=== PATIENT | male | born 1935 | race Two or more races ===

== ENCOUNTER 2018-09-18 10:17 | Outpatient (CLI) | payer OTHER | END 2018-09-18 10:23 | disposition home or self-care (01) | LOC: SONOGRAMA 10:17 | DX: M79.604 Pain in right leg (principal) ==

== ENCOUNTER 2018-10-07 08:43 | Outpatient (CLI) | payer OTHER | END 2018-10-07 08:55 | disposition home or self-care (01) | LOC: TOM 08:43 | DX: R31.0 Gross hematuria (principal) | CPT/HCPCS: 74178; Q9965 ==

== ENCOUNTER 2019-01-31 08:46 | Outpatient (CLI) | payer OTHER | END 2019-01-31 08:56 | disposition home or self-care (01) | LOC: SONOGRAMA 08:46 | DX: M79.604 Pain in right leg (principal); M06.261 Rheumatoid bursitis, right knee ==

== ENCOUNTER 2019-03-10 11:37 | Outpatient (CLI) | payer OTHER | END 2019-03-10 15:05 | disposition home or self-care (01) | LOC: LAB 11:37 | DX: N28.1 Cyst of kidney, acquired (principal); Z51.81 Encounter for therapeutic drug level monitoring ==

== ENCOUNTER 2019-03-17 08:20 | Outpatient (CLI) | payer OTHER | END 2019-03-17 08:44 | disposition home or self-care (01) | LOC: TOM 08:20 | DX: N28.1 Cyst of kidney, acquired (principal) | CPT/HCPCS: 74178; Q9965 ==

== ENCOUNTER 2019-08-16 08:41 | Outpatient (CLI) | payer OTHER | END 2019-08-16 09:00 | disposition home or self-care (01) | LOC: SONOGRAMA 08:41 → MAMO-SONO 09:15 | DX: E11.9 Type 2 diabetes mellitus without complications (principal); R63.4 Abnormal weight loss ==

== ENCOUNTER 2019-12-09 14:03 | Emergency (ER) | payer OTHER ==
[~2019-12-09] VITALS: Ht 170.2 cm; Wt 79.4 kg
[2019-12-09] MEDS ORDERED: METFORMIN HCL500 M3 (14:26)
[2019-12-09] MEDS ORDERED: LISINOPRIL10 MG (14:26)
[2019-12-09] MEDS ORDERED: [UNRECOGNIZED DRUG - OTHER] (14:28)
== END 2019-12-09 20:10 | disposition home or self-care (01) ==
LOC: ER 14:03
DX: S32.491A Other specified fracture of right acetabulum, initial encounter for closed fracture (principal); W18.39XA Other fall on same level, initial encounter; Y93.89 Activity, other specified; Y92.538 Other ambulatory health services establishments as the place of occurrence of the external cause; Y99.8 Other external cause status

== ENCOUNTER 2021-05-11 10:14 | Emergency (ER) | payer OTHER ==
[~2021-05-11] VITALS: Ht 170.2 cm; Wt 76.2 kg
[~2021-05-11 10:14] MED LIST: LISINOPRIL10 MG; METFORMIN HCL500 M3; [UNRECOGNIZED DRUG - OTHER]
[2021-05-11] MEDS ORDERED: CIPRO500 MG PO (16:38)
[2021-05-12] MEDS ORDERED: LATANOPROST2.5 ML OP (13:15)
== END 2021-05-11 17:38 | disposition home or self-care (01) ==
LOC: ER 10:14
DX: N40.1 Benign prostatic hyperplasia with lower urinary tract symptoms (principal); N39.0 Urinary tract infection, site not specified; R33.8 Other retention of urine; K59.09 Other constipation

== ENCOUNTER 2021-05-12 12:26 | Emergency (ER) | payer OTHER ==
[~2021-05-12] VITALS: Ht 170.2 cm; Wt 76.2 kg
[~2021-05-12 12:26] MED LIST changes: +CIPRO500 MG PO
[2021-05-12] MEDS ORDERED: LATANOPROST2.5 ML OP (13:15)
== END 2021-05-12 17:36 | disposition home or self-care (01) ==
LOC: ER 12:26
DX: T83.091A Other mechanical complication of indwelling urethral catheter, initial encounter (principal)

== ENCOUNTER 2022-02-27 08:48 | Outpatient (CLI) | payer OTHER ==
[~2022-02-27 08:48] MED LIST changes: +LATANOPROST2.5 ML OP
== END 2022-02-27 08:49 | disposition home or self-care (01) ==
LOC: NUCLEAR 08:48
PROVIDERS: ATTEND Family Medicine
DX: M79.661 Pain in right lower leg (principal); I87.2 Venous insufficiency (chronic) (peripheral)